=== PATIENT | male | born 1975 | race Caucasian/White ===

== ENCOUNTER 2017-12-05 21:41 | Inpatient (IN) | payer OTHER, SELFPAY ==
[2017-12-05 22:23] LABS: #Basophils 0.1 thou/uL (0.0-0.2); #Lymphocytes 2.3 thou/uL (1.20-3.40); #Monocytes 0.1 thou/uL (0.11-0.59); #Neutrophils 2.3 thou/uL (1.40-6.50); %Basophils 1.2 % (0.0-1.0); %Eosinophils 0.4 % (0.0-10.0); %Lymphocytes 48.3 % (21.0-51.0); %Monocytes 2.4 % (0.0-10.0); %Neutrophils 47.7 % (42.0-75.0); Hemoglobin 15.6 g/dL (14.0-18.0); Mean Corpuscular HGB CONC 35.5 g/dL (32.0-36.0); Mean Corpuscular Hemoglobin 36.4 pg (27.0-31.0); Mean Platelet Volume 8.6 fL (7.4-10.4); Platelet Count 56 thou/uL (130-400); RBC Distribution Width 12.4 % (11.5-14.5); Red Blood Cell (RBC) Count 4.29 mill/uL (4.70-6.10); White Blood Cell (WBC) Count 4.8 thou/uL (4.8-10.8)
[2017-12-05 22:31] LABS: ALT (SGPT) 192 U/L (8-55); AST (SGOT) 628 U/L (5-34); Albumin 3.6 g/dL (3.5-5.0); Alkaline Phosphatase 32 U/L (40-150); Anion Gap 22 mmol/L (10-20); BUN (Urea Nitrogen) 16 mg/dL (8.9-20.6); Bilirubin, Total 2.8 mg/dL (0.2-1.2); Calc. Creatinine Clearance 0 mL/min (70-130); Calcium 8.3 mg/dL (7.8-10.44); Carbon Dioxide 30 mmol/L (22-29); Chloride 88 mmol/L (98-107); Estimated GFR-MDRD Greater than 90; Glucose 151 mg/dL (70-105); Lipase 67 U/L (8-78); Potassium 3.3 mmol/L (3.5-5.1); Protein, Total 6.6 g/dL (6.0-8.3); Sodium 137 mmol/L (136-145)
[2017-12-06] MEDS ORDERED: Nicotine 14 MG PATCH TOP SCH (01:00)
[2017-12-06 01:01] LABS: INR-International Normal Ratio 1.4; PTT 33.9 SEC (22.9-36.1); Prothrombin Time 17.1 SEC (12.0-14.7)
[2017-12-06 01:20] LABS: Acetaminophen Less than 6.0 mcg/mL (10.0-30.0); Magnesium 1.5 mg/dL (1.6-2.6); Salicylate Less than 8.0 mg/dL (15.0-30.0)
[2017-12-06 01:25] LABS: Alcohol 411 mg/dL (Less than 10)
[2017-12-06 02:35] LABS: Amphetamine Not Detected (NotDetected); Barbiturates Screen Not Detected (NotDetected); Benzodiazepine Screen Not Detected (NotDetected); Cocaine Metabolite Screen Not Detected (NotDetected); Medtox Control Line Valid? VALID (VALID); Medtox Reader # READER 4; Methadone Not Detected (NotDetected); Methamphetamine Not Detected (NotDetected); Opiate Screen Not Detected (NotDetected); Oxycodone Screen Not Detected (NotDetected); Phencyclidine (PCP) Not Detected (NotDetected); THC/Cannabinoid Screen Detected (NotDetected); Tricyclic Screen Not Detected (NotDetected)
[2017-12-06 02:54] VITALS: BMI 18.9
[2017-12-06] MEDS ORDERED: Sodium Chloride 0.9% 1,000 ML IV SCH (02:59)
[2017-12-06] MEDS ORDERED: Diazepam 5 MG TAB PO PRN (03:50)
[2017-12-06] MEDS ORDERED: Diazepam 5 MG TAB PO SCH (04:00)
[2017-12-06] MEDS ORDERED: Thiamine HCl 200 MG/2 ML VIAL IM SCH (04:00)
[2017-12-06] MEDS ORDERED: Folic Acid 1 MG TAB PO SCH (09:00)
[2017-12-06] MEDS ORDERED: Multivitamin W/ Minerals 1 TAB PO SCH (09:00)
[2017-12-06] MEDS ORDERED: Mag-Al 1200 mg/1200 mg/30 ML UDCUP PO PRN (09:13)
[2017-12-06] MEDS ORDERED: Loperamide HCl 2 MG CAP PO PRN (09:13)
[2017-12-06] MEDS ORDERED: Senokot 8.6 MG TAB PO PRN (09:13)
[2017-12-06] MEDS ORDERED: Sodium Chloride 0.65% Nasal 44 ML BOT EA NARE PRN (09:13)
[2017-12-06] MEDS ORDERED: Ondansetron HCl/PF 4 MG/2 ML Vial IVP PRN (09:13)
[2017-12-06] MEDS ORDERED: hydrALAZINE 20 MG/ML VIAL SLOW IVP PRN (09:13)
[2017-12-06] MEDS ORDERED: Acetaminophen 325 MG TAB PO PRN (09:13)
[2017-12-06] MEDS ORDERED: Loratadine 10 MG TAB PO PRN (09:13)
[2017-12-06] MEDS ORDERED: traMADol HCl 50 MG TAB PO PRN (09:13)
[2017-12-06] MEDS ORDERED: Eucerin (Mineral Oil/Petrolatum,White) 30 gm Jar TOP PRN (09:13)
[2017-12-06] MEDS ORDERED: Artificial Tears 18 DROP/0.9 ML EA EYE PRN (09:13)
[2017-12-06] MEDS ORDERED: Diabetic Tussin 200 MG/10 ML UDCUP PO PRN (09:13)
[2017-12-06] MEDS ORDERED: Ondansetron ODT 4 MG TAB PO PRN (09:13)
[2017-12-06] MEDS ORDERED: Chloraseptic Spray 180 ml Bottle PO PRN (09:13)
[2017-12-06] MEDS: Lorazepam 2 MG/ML VIAL SLOW IVP PRN (11:28)
--- NOTE | 2017-12-06 12:02 | HP ---
PRIMARY CARE PHYSICIAN: [facility] call admission. REASON FOR ADMISSION: Acute alcoholic hepatitis and altered mental status. HISTORY OF PRESENT ILLNESS: A 42-year-old male who has history of seizure disorder as well as alcoholism, who was brought to emergency room for altered mental status. This patient has seizure disorder which he had first time in 2016. At that time, MRI was obtained and patient was started on seizure medication. Neurology involved at that time in his care. Patient has heavy alcoholism history, but he reports that he is trying to cut down, but still drinking every day basis little amount. His last drink was yesterday before coming to emergency room and he drank almost half pint of beer. Patient's sister noticed that he is gradually getting more confused and more unsteady. The patient's sister reports that another seizure happened in 08/2017 , at that time he fell down after seizure and he had bleeding from his head. He required admission in [facility], but family member reports that at that time, no more investigation was done. Since then, the patient is acting differently and he is having more and more confusion and more unsteadiness. Last night, he was brought to Emergency Room and he was found with abnormal LFT. He was found with acute hepatitis. His alcohol level was 411 and he had a cannabinoid positive in his drug screen. The patient was admitted to observation floor and I saw this morning, at that time he was not having any headache. He was not able to tell the date, but other question he answered correctly. He denies any focal motor weakness, but he feels incoordination. He denies any sensory symptoms. He denies any nausea, vomiting, chest pain, palpitation, UTI symptoms. He denies any melena or hematochezia. He reports that 2 weeks ago he had only one day mild blood with the stool, but subsequently he did not have any further blood in stool and currently he denies any hematochezia. He reports at that time he was constipated. REVIEW OF SYSTEMS: The following complete review of systems was negative, unless otherwise mentioned in the HPI or below: Constitutional: Weight loss or gain, ability to conduct usual activities. Skin: Rash, itching. Eyes: Double vision, pain. ENT/Mouth: Nose bleeding, neck stiffness, pain, tenderness. Cardiovascular: Palpitations, dyspnea on exertion, orthopnea. Respiratory: Shortness of breath, wheezing, cough, hemoptysis, fever or night sweats. Gastrointestinal: Poor appetite, abdominal pain, heartburn, nausea, vomiting, constipation, or diarrhea. Genitourinary: Urgency, frequency, dysuria, nocturia. Musculoskeletal: Pain, swelling. Neurologic/Psychiatric: Anxiety, depression. Allergy/Immunologic: Skin rash, bleeding tendency. Please see my HPI for pertinent positive and negative. All other review of system reviewed and negative except as mentioned in the HPI. 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 PAST SURGICAL HISTORY: Left foot surgery, right hand surgery. PAST PSYCHIATRIC HISTORY: Anxiety and depression. SOCIAL HISTORY: Patient is an alcoholic. He is trying to cut down by himself, but he drinks daily every day basis of variable amount of alcohol every day basis. Per him, patient used to drink 30 pack per day, but now he has cut down to almost half. He also smokes 1 pack per day and he also abuses marijuana. He lives with his sister. FAMILY HISTORY: No strong family history of premature coronary artery disease, stroke or cancer. ALLERGY: No known drug allergy. CURRENT HOME MEDICATIONS: The patient did not bring any medication in the emergency room, but based on our record, he was on Protonix 40 mg p.o. daily, Dilantin 100 mg 3 times daily. He is not taking any vitamins. EMERGENCY ROOM COURSE: Patient is given nicotine patch, IV fluid 1 liter. PHYSICAL EXAMINATION: VITAL SIGNS: Currently, blood pressure 112/83, pulse 96, respiratory rate 20, temperature 98.6, saturation 95% on room air, weight 58.6 kilograms. GENERAL: Patient is currently alert, awake, apprehensive, no obvious acute distress. HEENT: Normocephalic, atraumatic. Eyes: Pupils round, reactive to light. Extraocular muscle intact. No nystagmus. ENT: Oropharynx within normal limits. Moist mucous membranes. No oral lesion , no pharyngeal erythema, no exudate. NECK: Supple, no JVD, no thyromegaly, no carotid bruit, no jugular venous distention. LUNGS: Clear to auscultation without any rhonchi or rales. CARDIAC: S1, S2 appears regular. No murmur, no gallop, no rub. ABDOMEN: Patient does have right upper quadrant tenderness. Bowel sounds present. No distention, no hepatomegaly noted. No suprapubic tenderness, no peritoneal sign, no guarding, no rigidity, no rebound. BACK: Unremarkable, no CVA tenderness. EXTREMITIES: Upper extremity: Passive movements of all joints are normal. Lower extremities: No edema. Good peripheral pulsation. SKIN: No skin rash. HEMATOLOGICAL: No lymphadenopathy. PSYCHIATRIC: Normal affect. SIGNIFICANT LABS: CBC: WBC 4.8, hemoglobin 15.6, MCV 102, platelet 56. INR 1.4. BMP shows sodium 137, potassium 3.3, chloride 88, carbon dioxide 30, anion gap 22, BUN 16 , creatinine 0.83, glucose 151, calcium 8.3, magnesium 1.5, bilirubin 2.8, AST 628, ALT 192, alkaline phosphatase 32, albumin 3.6, lipase 67. Serum drug screen showed alcohol level 411. Salicylate level less than 8. Acetaminophen level less than 6. Dilantin level less than 1.8, cannabinoids positive in urine drug screen. ASSESSMENT AND PLAN/IMPRESSION: 1. Acute alcoholic hepatitis. Patient has right upper quadrant tenderness. Patient does have abnormal LFT with ongoing alcohol abuse history. The patient does have chronic alcoholism. At this point, the patient has mostly alcoholic hepatitis. We will treat him with his conservative way with banana bag and prednisolone 15 mg p.o. daily. We will repeat CMP tomorrow. 2. Progressive encephalopathy. This patient had a fall in August of this year and subsequently he is having intermittent confusion and coordination. We will do CT brain to rule out any subdural hematoma. Most likely this patient's current presentation is explained from alcoholic related brain damage. We will monitor neurologically. 3. Alcohol intoxication on admission, the patient will be observed while in hospital for alcohol withdrawal syndrome. We will start ASE protocol treatment. The patient is given counseling to avoid alcohol abuse. 4. Abnormal liver function tests, likely related with alcoholic hepatitis, but we will check hepatitis profile to rule out any associated hepatitis. 5. Abnormal electrolytes. The patient does have a low potassium, low magnesium which will be replaced. We will also check phosphorus and will repeat labs tomorrow. 6. Macrocytosis. The patient is currently banana bag. We will start folic acid, vitamin B12 and thiamine therapy upon discharge. 7. Thrombocytopenia likely related with alcoholism. We will avoid any antiplatelet or heparin product. 8. Coagulopathy due to liver disease. 9. Moderate protein calorie malnutrition. The patient will be given nutritional supplementation with Ensure. 10. Tobacco abuse disorder, nicotine patch will be given and smoking cessation counseling given. Cannabis abuse. Patient is given counseling to avoid other illicit drug abuse. 11. Deep venous thrombosis prophylaxis. No Lovenox because of low platelet count. 12. Gastrointestinal prophylaxis, Protonix 40 mg IV daily. 13. Seizure disorder: continue dilantin, dilantin level checked and low CODE STATUS: Patient is full code. Patient's sister is surrogate decision maker. Disposition plan based on clinical course. We are expecting patient's stay in hospital more than 2 midnights. Plan of care discussed with the patient and patient's sister. YUVAL
[2017-12-06] MEDS: Nicotine 14 MG PATCH TD SCH (12:24)
[2017-12-06] MEDS: Multivitamins, Adult 10 ML, Folic Acid 1 MG, Thiamine HCl 100 MG in Dextrose 5 %-0.45 %... IV SCH (12:25)
--- NOTE | 2017-12-06 13:36 | CT ---
CT HEAD NONCONTRAST: HISTORY: Falls. Altered mental status. COMPARISON: 09/05/16. FINDINGS: There is no evidence of acute intracranial hemorrhage or infarct. The ventricles appear normal in si ze, shape, and position. There is no mass effect or shift of midline structures. Visualized paranas al sinuses remain well aerated. IMPRESSION: No acute intracranial abnormalities are demonstrated on noncontrast CT head. POS: JOSE
[2017-12-06] MEDS: Potassium Chloride 20 MEQ TAB PO SCH (16:25)
[2017-12-06] MEDS: Diazepam 5 MG TAB PO SCH (20:37)
[2017-12-06] MEDS ORDERED: Famotidine 20 MG TAB PO SCH (21:00)
[2017-12-07] MEDS ORDERED: Diazepam 5 MG TAB PO PRN (04:00)
[2017-12-07 04:53] LABS: Phosphorus 2.3 mg/dL (2.3-4.7)
[2017-12-07 04:56] LABS: Magnesium 0.9 mg/dL (1.6-2.6)
[2017-12-07 05:14] LABS: HBCM Index 0.26 S/CO (0-0.79); HBSAg Index 0.22 S/CO (0-0.99); Hep A IgM AB Non-Reactive (NonReactive); Hep A IgM S/CO 0.44 S/CO (0-0.79); Hep B Surf Ag Non-Reactive S/CO (NonReactive); Hep C IgG Ab Non-Reactive (NonReactive); Hep C Index 0.15 S/CO (0-0.79); Hepatitis B Core IGM Abs Non-Reactive (NonReactive)
[2017-12-07] MEDS ORDERED: Magnesium 2 GM/NS 0.9% 100 ML 2 GM in Premix Bag 1 BAG IVPB SCH (05:15)
[2017-12-07] MEDS ORDERED: Magnesium Sulfate 4 GM in Sodium Chloride 0.9% 250 ML 250 ML IVPB SCH (07:00)
[2017-12-07] MEDS: prednisoLONE 15 MG/5 ML UDCUP PO SCH (08:08)
[2017-12-07] MEDS: Potassium Chloride 20 MEQ TAB PO SCH ×2 (08:08→16:46)
[2017-12-07] MEDS: Diazepam 5 MG TAB PO SCH ×2 (08:09→20:15)
[2017-12-07] MEDS: Amlodipine 5 MG TAB PO SCH (08:09)
[2017-12-07] MEDS ORDERED: Magnesium Oxide 400 MG TAB PO SCH ×2 (09:00)
[2017-12-07] MEDS: Nicotine 14 MG PATCH TD SCH (11:50)
[2017-12-07] MEDS: Multivitamins, Adult 10 ML, Folic Acid 1 MG, Thiamine HCl 100 MG in Dextrose 5 %-0.45 %... IV SCH (12:04)
--- NOTE | 2017-12-07 12:08 | PDOC.PN ---
- Subjective Encounter Start Date: 12/07/17 Encounter Start Time: 07:50 -: old records requested/rev Patient seen and examined for abnormal LFT. No new complaints. Noted overnight events - Objective Resuscitation Status: Resuscitation Status FULL:Full Resuscitation MAR Reviewed: Yes Vital Signs & Weight: Vital Signs (12 hours) Temp Pulse Resp BP Pulse Ox 12/07/17 11:30 98.4 F 59 L 16 136/86 99 12/07/17 08:09 59 L 12/07/17 08:00 97.8 F 59 L 18 95 12/07/17 07:11 98.1 F 59 L 16 141/87 H 99 12/07/17 04:58 94 L Weight Admit Weight 120 lb 12.8 oz Weight 120 lb 12.8 oz I&O: 12/06/17 12/07/17 12/08/17 06:59 06:59 06:59 Intake Total 100 1490 420 Output Total 402 Balance 100 1088 420 Result Diagrams: 12/05/17 21:54 12/05/17 21:54 Radiology Reviewed by me: Yes Phys Exam - Physical Examination Constitutional: NAD HEENT: PERRLA, moist MMs Neck: no JVD, supple Respiratory: no wheezing, no rales, no rhonchi Cardiovascular: RRR, no significant murmur, no rub Gastrointestinal: soft, non-tender, no distention, positive bowel sounds Musculoskeletal: no edema, pulses present Neurological: non-focal, normal sensation Lymphatic: no nodes Psychiatric: normal affect Skin: no rash, normal turgor Dx/Plan (1) Abnormal LFTs Code(s): R94.5 - ABNORMAL RESULTS OF LIVER FUNCTION STUDIES Status: Acute (2) Alcohol intoxication Status: Acute (3) Alcoholic hepatitis without ascites Code(s): K70.10 - ALCOHOLIC HEPATITIS WITHOUT ASCITES Status: Acute (4) Coagulopathy Status: Acute (5) Hypokalemia Code(s): E87.6 - HYPOKALEMIA Status: Acute (6) Hypomagnesemia Code(s): E83.42 - HYPOMAGNESEMIA Status: Acute (7) Alcohol use Code(s): Z78.9 - OTHER SPECIFIED HEALTH STATUS Status: Chronic (8) Macrocytic anemia Code(s): D53.9 - NUTRITIONAL ANEMIA, UNSPECIFIED Status: Chronic (9) Protein-calorie malnutrition, moderate Code(s): E44.0 - MODERATE PROTEIN-CALORIE MALNUTRITION Status: Chronic (10) Thrombocytopenia Code(s): D69.6 - THROMBOCYTOPENIA, UNSPECIFIED Status: Chronic (11) Tobacco abuse Code(s): Z72.0 - TOBACCO USE Status: Chronic - Plan cont current plan of care * replace magnesium * repeat labs tomorrow * medication reviewed as below * symptomatic treatment. * continue prednisolone Review of Systems - Review of Systems Eyes: negative: Pain, Vision Change, Conjunctivae Inflammation, Eyelid Inflammation, Redness, Other ENT: negative: Ear Pain, Ear Discharge, Nose Pain, Nose Discharge, Nose Congestion, Mouth Pain, Mouth Swelling, Throat Pain, Throat Swelling, Other Respiratory: negative: Cough, Dry, Shortness of Breath, Hemoptysis, SOB with Excertion, Pleuritic Pain, Sputum, Wheezing Cardiovascular: negative: chest pain, palpitations, orthopnea, paroxysmal nocturnal dyspnea, edema, light headedness, other Gastrointestinal: negative: Nausea, Vomiting, Abdominal Pain, Diarrhea, Constipation, Melena, Hematochezia, Other Genitourinary: negative: Dysuria, Frequency, Incontinence, Hematuria, Retention , Other Musculoskeletal: negative: Neck Pain, Shoulder Pain, Arm Pain, Back Pain, Hand Pain, Leg Pain, Foot Pain, Other Skin: negative: Rash, Lesions, Jose, Bruising, Other - Medications/Allergies Allergies/Adverse Reactions: Allergies Allergy/AdvReac Type Severity Reaction Status Date / Time No Known Allergies Allergy Verified 12/06/17 03:00 Medications: Current Medications Acetaminophen (Tylenol) 325 mg PO Q4H PRN PRN Reason: Headache/Fever or Pain Al Hydroxide/Mg Hydroxide (Maalox) 30 ml PO Q6H PRN PRN Reason: Heartburn or Indigestion Amlodipine Besylate (Norvasc) 5 mg PO DAILY [facility] Last Admin: 12/07/17 08:09 Dose: 5 mg Artificial Tears (Tears Naturale) 0 drop EA EYE PRN PRN PRN Reason: Dry Eyes Diazepam (Valium) 5 mg PO BID [facility] Last Admin: 12/07/17 08:09 Dose: 5 mg Guaifenesin (Robitussin Sf) 200 mg PO Q4H PRN PRN Reason: Cough Hydralazine HCl (Apresoline) 10 mg SLOW IVP Q4H PRN PRN Reason: Systolic BP > 180 Multivitamins 10 ml/ Folic Acid 1 mg/ Thiamine HCl 100 mg / Dextrose/Sodium Chloride 1,011.2 mls @ 125 mls/hr IV 1100 [facility] Last Admin: 12/07/17 12:04 Dose: 1,011.2 mls Lactulose (Lactulose) 20 gm PO DAILY [facility] Last Admin: 12/07/17 08:09 Dose: 20 gm Loperamide HCl (Imodium) 2 mg PO PRN PRN PRN Reason: Diarrhea/Loose Stools Loratadine (Claritin) 10 mg PO DAILYPRN PRN PRN Reason: Sinus Symptoms Lorazepam (Ativan) 1 mg SLOW IVP Q4H PRN PRN Reason: Anxiety/Agitation Last Admin: 12/06/17 11:28 Dose: 1 mg Magnesium Oxide (Magnesium Oxide) 400 mg PO DAILY [facility] Last Admin: 12/07/17 08:09 Dose: 400 mg Mineral Oil/White Petrolatum (Eucerin Cream) 0 gm TOP BIDPRN PRN PRN Reason: Dry Skin Nicotine (Nicoderm Patch) 14 mg TD 1200 [facility] Last Admin: 12/07/17 11:50 Dose: 14 mg Ondansetron HCl (Zofran Odt) 4 mg PO Q6H PRN PRN Reason: Nausea/Vomiting Ondansetron HCl (Zofran) 4 mg IVP Q6H PRN PRN Reason: Nausea/Vomiting Pantoprazole Sodium (Protonix) 40 mg PO DAILY [facility] Last Admin: 12/07/17 08:09 Dose: 40 mg Phenol (Chloraseptic [place] 180 Ml Bot) 0 ml PO PRN PRN PRN Reason: Sore Throat Potassium Chloride (K-Dur) 20 meq PO BID[facility] Last Admin: 12/07/17 08:08 Dose: 20 meq Prednisolone (Orapred) 15 mg PO DAILY [facility] Last Admin: 12/07/17 08:08 Dose: 15 mg Senna (Senokot) 2 tab PO HSPRN PRN PRN Reason: Constipation Sodium Chloride ([place] Nasal [place] 0.65%) 0 ml EA NARE QIDPRN PRN PRN Reason: Nasal Congestion Tramadol HCl (Ultram) 50 mg PO Q4H PRN PRN Reason: Moderate Pain (4-6)
[2017-12-08 05:28] LABS: #Eosinphils 0.1 thou/uL (0.0-0.7); #Lymphocytes 1.3 thou/uL (1.20-3.40); #Monocytes 0.1 thou/uL (0.11-0.59); #Neutrophils 2.5 thou/uL (1.40-6.50); %Basophils 0.5 % (0.0-1.0); %Eosinophils 1.9 % (0.0-10.0); %Lymphocytes 32.1 % (21.0-51.0); %Monocytes 3.1 % (0.0-10.0); %Neutrophils 62.5 % (42.0-75.0); Hemoglobin 11.1 g/dL (14.0-18.0); Mean Corpuscular HGB CONC 36.1 g/dL (32.0-36.0); Mean Platelet Volume 9.9 fL (7.4-10.4); Platelet Count 23 thou/uL (130-400); RBC Distribution Width 12.4 % (11.5-14.5); Red Blood Cell (RBC) Count 3.01 mill/uL (4.70-6.10); White Blood Cell (WBC) Count 4.1 thou/uL (4.8-10.8)
[2017-12-08 05:32] LABS: ALT (SGPT) 179 U/L (8-55); AST (SGOT) 241 U/L (5-34); Albumin 3.3 g/dL (3.5-5.0); Alkaline Phosphatase 28 U/L (40-150); Anion Gap 13 mmol/L (10-20); BUN (Urea Nitrogen) 4 mg/dL (8.9-20.6); Bilirubin, Total 2.7 mg/dL (0.2-1.2); Calc. Creatinine Clearance 114 mL/min (70-130); Calcium 7.8 mg/dL (7.8-10.44); Carbon Dioxide 31 mmol/L (22-29); Chloride 88 mmol/L (98-107); Estimated GFR-MDRD Greater than 90; Globulin 2.8 g/dL (2.4-3.5); Glucose 141 mg/dL (70-105); Magnesium 1.3 mg/dL (1.6-2.6); Protein, Total 6.1 g/dL (6.0-8.3); Sodium 130 mmol/L (136-145)
[2017-12-08] MEDS ORDERED: Potassium Chloride 20 MEQ TAB PO SCH (06:15)
[2017-12-08] MEDS: Potassium Chloride 20 MEQ in Premix Bag 1 BAG IVPB SCH ×2 (06:20→07:50)
[2017-12-08] MEDS ORDERED: Magnesium Sulfate 4 GM in Sodium Chloride 0.9% 250 ML 250 ML IVPB SCH (06:30)
[2017-12-08] MEDS: prednisoLONE 15 MG/5 ML UDCUP PO SCH (07:45)
[2017-12-08] MEDS: Potassium Chloride 20 MEQ TAB PO SCH ×3 (07:46→20:31)
[2017-12-08] MEDS: Multivitamin W/ Minerals 1 TAB PO SCH (07:46)
[2017-12-08] MEDS: Folic Acid 1 MG TAB PO SCH (07:46)
[2017-12-08] MEDS: Diazepam 5 MG TAB PO SCH ×2 (07:46→20:31)
[2017-12-08] MEDS: Amlodipine 5 MG TAB PO SCH (07:46)
[2017-12-08] MEDS: Cyanocobalamin (Vitamin B-12) 1,000 MCG TAB PO SCH (07:46)
[2017-12-08] MEDS: Magnesium Oxide 400 MG TAB PO SCH ×2 (07:47→20:30)
--- NOTE | 2017-12-08 10:08 | PDOC.PN ---
- Subjective Encounter Start Date: 12/08/17 Encounter Start Time: 09:10 Patient seen and examined for abnormal LFT. No new complaints. No overnight events - Objective Resuscitation Status: Resuscitation Status FULL:Full Resuscitation MAR Reviewed: Yes Vital Signs & Weight: Vital Signs (12 hours) Temp Pulse Resp BP Pulse Ox 12/08/17 08:00 97.4 F L 66 18 98 12/08/17 07:46 66 12/08/17 07:16 98 F 66 16 115/82 98 12/08/17 05:28 98 12/08/17 04:00 98.2 F 53 L 18 142/92 H 98 12/08/17 00:00 98.3 F 67 18 126/89 99 Weight Admit Weight 120 lb 12.8 oz Weight 120 lb 12.8 oz I&O: 12/07/17 12/08/17 12/09/17 06:59 06:59 06:59 Intake Total 1490 1020 360 Output Total 402 600 Balance 1088 420 360 Result Diagrams: 12/08/17 04:36 12/08/17 04:36 Phys Exam - Physical Examination Constitutional: NAD HEENT: PERRLA, moist MMs, sclera anicteric Neck: no JVD, supple Respiratory: no wheezing, no rales, no rhonchi Cardiovascular: RRR, no significant murmur, no rub Gastrointestinal: soft, non-tender, no distention, positive bowel sounds Musculoskeletal: no edema, pulses present Neurological: non-focal, normal sensation, moves all 4 limbs Lymphatic: no nodes Psychiatric: normal affect Skin: no rash, normal turgor Dx/Plan (1) Abnormal LFTs Code(s): R94.5 - ABNORMAL RESULTS OF LIVER FUNCTION STUDIES Status: Acute (2) Alcohol intoxication Status: Acute (3) Alcoholic hepatitis without ascites Code(s): K70.10 - ALCOHOLIC HEPATITIS WITHOUT ASCITES Status: Acute (4) Coagulopathy Status: Acute (5) Hypokalemia Code(s): E87.6 - HYPOKALEMIA Status: Acute (6) Hypomagnesemia Code(s): E83.42 - HYPOMAGNESEMIA Status: Acute (7) Alcohol use Code(s): Z78.9 - OTHER SPECIFIED HEALTH STATUS Status: Chronic (8) Macrocytic anemia Code(s): D53.9 - NUTRITIONAL ANEMIA, UNSPECIFIED Status: Chronic (9) Protein-calorie malnutrition, moderate Code(s): E44.0 - MODERATE PROTEIN-CALORIE MALNUTRITION Status: Chronic (10) Thrombocytopenia Code(s): D69.6 - THROMBOCYTOPENIA, UNSPECIFIED Status: Chronic (11) Tobacco abuse Code(s): Z72.0 - TOBACCO USE Status: Chronic - Plan cont current plan of care * DC banana bag * start oral folic acid, thiamin, vitamin b12 and theragram M * replace potassium and magnesium today * will recheck bmp, mg later today and replace more if needed * expecting discharge tomorrow * medication reviewed as below * symptomatic treatment. Review of Systems - Review of Systems Eyes: negative: Pain, Vision Change, Conjunctivae Inflammation, Eyelid Inflammation, Redness, Other ENT: negative: Ear Pain, Ear Discharge, Nose Pain, Nose Discharge, Nose Congestion, Mouth Pain, Mouth Swelling, Throat Pain, Throat Swelling, Other Respiratory: negative: Cough, Dry, Shortness of Breath, Hemoptysis, SOB with Excertion, Pleuritic Pain, Sputum, Wheezing Cardiovascular: negative: chest pain, palpitations, orthopnea, paroxysmal nocturnal dyspnea, edema, light headedness, other Gastrointestinal: negative: Nausea, Vomiting, Abdominal Pain, Diarrhea, Constipation, Melena, Hematochezia, Other Genitourinary: negative: Dysuria, Frequency, Incontinence, Hematuria, Retention , Other Musculoskeletal: negative: Neck Pain, Shoulder Pain, Arm Pain, Back Pain, Hand Pain, Leg Pain, Foot Pain, Other Skin: negative: Rash, Lesions, Jose, Bruising, Other - Medications/Allergies Allergies/Adverse Reactions: Allergies Allergy/AdvReac Type Severity Reaction Status Date / Time No Known Allergies Allergy Verified 12/06/17 03:00 Medications: Current Medications Acetaminophen (Tylenol) 325 mg PO Q4H PRN PRN Reason: Headache/Fever or Pain Al Hydroxide/Mg Hydroxide (Maalox) 30 ml PO Q6H PRN PRN Reason: Heartburn or Indigestion Amlodipine Besylate (Norvasc) 5 mg PO DAILY [facility] Last Admin: 12/08/17 07:46 Dose: 5 mg Artificial Tears (Tears Naturale) 0 drop EA EYE PRN PRN PRN Reason: Dry Eyes Cyanocobalamin (Vitamin B-12) 1,000 mcg PO DAILY [facility] Last Admin: 05/05/18 07:46 Dose: 1,000 mcg Diazepam (Valium) 5 mg PO BID [facility] Last Admin: 12/08/17 07:46 Dose: 5 mg Folic Acid (Folvite) 1 mg PO DAILY [facility] Last Admin: 12/08/17 07:46 Dose: 1 mg Guaifenesin (Robitussin Sf) 200 mg PO Q4H PRN PRN Reason: Cough Hydralazine HCl (Apresoline) 10 mg SLOW IVP Q4H PRN PRN Reason: Systolic BP > 180 Potassium Chloride 20 meq/ (Device) 100 mls @ 50 mls/hr IVPB 0630,0830 [facility] Stop: 12/08/17 10:29 Last Admin: 12/08/17 07:50 Dose: 100 mls Iron/Minerals/Multivitamins (Theragran M) 1 tab PO DAILY [facility] Last Admin: 12/08/17 07:46 Dose: 1 tab Lactulose (Lactulose) 20 gm PO DAILY [facility] Last Admin: 12/08/17 07:45 Dose: 20 gm Loperamide HCl (Imodium) 2 mg PO PRN PRN PRN Reason: Diarrhea/Loose Stools Loratadine (Claritin) 10 mg PO DAILYPRN PRN PRN Reason: Sinus Symptoms Lorazepam (Ativan) 1 mg SLOW IVP Q4H PRN PRN Reason: Anxiety/Agitation Last Admin: 12/06/17 11:28 Dose: 1 mg Magnesium Oxide (Magnesium Oxide) 400 mg PO BID [facility] Last Admin: 12/08/17 07:47 Dose: 400 mg Mineral Oil/White Petrolatum (Eucerin Cream) 0 gm TOP BIDPRN PRN PRN Reason: Dry Skin Nicotine (Nicoderm Patch) 14 mg TD 1200 [facility] Last Admin: 12/07/17 11:50 Dose: 14 mg Ondansetron HCl (Zofran Odt) 4 mg PO Q6H PRN PRN Reason: Nausea/Vomiting Ondansetron HCl (Zofran) 4 mg IVP Q6H PRN PRN Reason: Nausea/Vomiting Pantoprazole Sodium (Protonix) 40 mg PO DAILY [facility] Last Admin: 12/08/17 07:46 Dose: 40 mg Phenol (Chloraseptic [place] 180 Ml Bot) 0 ml PO PRN PRN PRN Reason: Sore Throat Potassium Chloride (K-Dur) 20 meq PO TID [facility] Last Admin: 12/08/17 07:46 Dose: 20 meq Prednisolone (Orapred) 15 mg PO DAILY [facility] Last Admin: 12/08/17 07:45 Dose: 15 mg Senna (Senokot) 2 tab PO HSPRN PRN PRN Reason: Constipation Sodium Chloride ([place] Nasal [place] 0.65%) 0 ml EA NARE QIDPRN PRN PRN Reason: Nasal Congestion Sodium Chloride (Flush - Normal Saline) 10 ml IVF PRN PRN PRN Reason: Saline Flush Thiamine HCl (Thiamine) 100 mg PO DAILY [facility] Last Admin: 12/08/17 07:47 Dose: 100 mg Tramadol HCl (Ultram) 50 mg PO Q4H PRN PRN Reason: Moderate Pain (4-6)
[2017-12-08] MEDS: Nicotine 14 MG PATCH TD SCH (12:30)
[2017-12-09] MEDS: Lorazepam 2 MG/ML VIAL SLOW IVP PRN ×4 (00:13→22:27)
[2017-12-09 05:43] LABS: #Eosinphils 0.1 thou/uL (0.0-0.7); #Lymphocytes 1.8 thou/uL (1.20-3.40); #Monocytes 0.4 thou/uL (0.11-0.59); #Neutrophils 2.8 thou/uL (1.40-6.50); %Basophils 0.9 % (0.0-1.0); %Eosinophils 1.5 % (0.0-10.0); %Lymphocytes 35.5 % (21.0-51.0); %Monocytes 6.9 % (0.0-10.0); %Neutrophils 55.2 % (42.0-75.0); Hemoglobin 10.8 g/dL (14.0-18.0); Mean Corpuscular HGB CONC 35.7 g/dL (32.0-36.0); Mean Corpuscular Hemoglobin 37.2 pg (27.0-31.0); Mean Platelet Volume 9.6 fL (7.4-10.4); Platelet Count 36 thou/uL (130-400); RBC Distribution Width 12.3 % (11.5-14.5); Red Blood Cell (RBC) Count 2.92 mill/uL (4.70-6.10); White Blood Cell (WBC) Count 5.1 thou/uL (4.8-10.8)
[2017-12-09 05:56] LABS: ALT (SGPT) 165 U/L (8-55); AST (SGOT) 141 U/L (5-34); Albumin 3.7 g/dL (3.5-5.0); Alkaline Phosphatase 25 U/L (40-150); Anion Gap 11 mmol/L (10-20); BUN (Urea Nitrogen) 9 mg/dL (8.9-20.6); Bilirubin, Total 3.1 mg/dL (0.2-1.2); Calc. Creatinine Clearance 116 mL/min (70-130); Calcium 8.6 mg/dL (7.8-10.44); Carbon Dioxide 29 mmol/L (22-29); Chloride 95 mmol/L (98-107); Estimated GFR-MDRD Greater than 90; Globulin 3.1 g/dL (2.4-3.5); Glucose 110 mg/dL (70-105); Magnesium 1.6 mg/dL (1.6-2.6); Potassium 3.2 mmol/L (3.5-5.1); Protein, Total 6.8 g/dL (6.0-8.3); Sodium 132 mmol/L (136-145)
[2017-12-09] MEDS ORDERED: Potassium Chloride 20 MEQ TAB PO SCH (07:40)
[2017-12-09] MEDS: Cyanocobalamin (Vitamin B-12) 1,000 MCG TAB PO SCH (07:57)
[2017-12-09] MEDS: Folic Acid 1 MG TAB PO SCH (07:58)
[2017-12-09] MEDS: Magnesium Oxide 400 MG TAB PO SCH ×2 (07:58→20:40)
[2017-12-09] MEDS: Diazepam 5 MG TAB PO SCH ×2 (07:58→20:40)
[2017-12-09] MEDS: Amlodipine 5 MG TAB PO SCH (07:58)
[2017-12-09] MEDS: Potassium Chloride 20 MEQ TAB PO SCH ×3 (07:59→20:40)
[2017-12-09] MEDS: Multivitamin W/ Minerals 1 TAB PO SCH (07:59)
[2017-12-09] MEDS: prednisoLONE 15 MG/5 ML UDCUP PO SCH (07:59)
[2017-12-09 09:58] LABS: Lactic Acid 1.1 mmol/L (0.5-2.2)
[2017-12-09 10:02] LABS: CK (CPK) 253 U/L (30-200); Dilantin Less than 1.8 ug/mL (10.0-20.0)
[2017-12-09] MEDS ORDERED: Haloperidol 1 MG TAB PO PRN (10:52)
--- NOTE | 2017-12-09 10:55 | PDOC.PN ---
- Subjective Encounter Start Date: 12/09/17 Encounter Start Time: 09:30 Patient seen and examined for alcohol withdrawl. today pt is confused, he is hallucinating, No overnight events - Objective Resuscitation Status: Resuscitation Status FULL:Full Resuscitation MAR Reviewed: Yes Vital Signs & Weight: Vital Signs (12 hours) Temp Pulse Resp BP BP Pulse Ox 12/09/17 08:00 97.5 F L 96 18 98 12/09/17 07:58 96 12/09/17 07:09 97.7 F 96 16 118/78 97 12/09/17 04:26 98.0 F 64 20 139/87 100 12/09/17 00:00 98.1 F 68 20 136/87 100 Weight Admit Weight 120 lb 12.8 oz Weight 120 lb 12.8 oz I&O: 12/08/17 12/09/17 12/10/17 06:59 06:59 06:59 Intake Total 1020 2080 360 Output Total 600 Balance 420 2080 360 Result Diagrams: 12/09/17 05:05 12/09/17 05:05 Phys Exam - Physical Examination Constitutional: NAD HEENT: PERRLA, moist MMs, sclera anicteric Neck: no JVD, supple Respiratory: no wheezing, no rales, no rhonchi Cardiovascular: RRR, no significant murmur, no rub Gastrointestinal: soft, non-tender, no distention, positive bowel sounds Musculoskeletal: no edema, pulses present Neurological: moves all 4 limbs Lymphatic: no nodes Psychiatric: normal affect Skin: no rash, normal turgor Dx/Plan (1) Abnormal LFTs Code(s): R94.5 - ABNORMAL RESULTS OF LIVER FUNCTION STUDIES Status: Acute (2) Alcohol intoxication Status: Acute (3) Alcoholic hepatitis without ascites Code(s): K70.10 - ALCOHOLIC HEPATITIS WITHOUT ASCITES Status: Acute (4) Coagulopathy Status: Acute (5) Hypokalemia Code(s): E87.6 - HYPOKALEMIA Status: Acute (6) Hypomagnesemia Code(s): E83.42 - HYPOMAGNESEMIA Status: Acute (7) Alcohol use Code(s): Z78.9 - OTHER SPECIFIED HEALTH STATUS Status: Chronic (8) Macrocytic anemia Code(s): D53.9 - NUTRITIONAL ANEMIA, UNSPECIFIED Status: Chronic (9) Protein-calorie malnutrition, moderate Code(s): E44.0 - MODERATE PROTEIN-CALORIE MALNUTRITION Status: Chronic (10) Thrombocytopenia Code(s): D69.6 - THROMBOCYTOPENIA, UNSPECIFIED Status: Chronic (11) Tobacco abuse Code(s): Z72.0 - TOBACCO USE Status: Chronic (12) Alcohol withdrawal syndrome Code(s): F10.239 - ALCOHOL DEPENDENCE WITH WITHDRAWAL, UNSPECIFIED Status: Acute - Plan cont current plan of care * continue ativan IV as needed, will add haldol PO as needed * replace potassium * will add keppra for suspected seizure, he is at risk for alcohol withdrawl seizure * restraint for his safety * medication reviewed as below * symptomatic treatment * he is not ready for discharge today * will monitor closely. Review of Systems - Review of Systems Other: not reliable as pt is confused and hallucinating - Medications/Allergies Allergies/Adverse Reactions: Allergies Allergy/AdvReac Type Severity Reaction Status Date / Time No Known Allergies Allergy Verified 12/06/17 03:00 Medications: Current Medications Acetaminophen (Tylenol) 325 mg PO Q4H PRN PRN Reason: Headache/Fever or Pain Last Admin: 12/09/17 05:15 Dose: 325 mg Al Hydroxide/Mg Hydroxide (Maalox) 30 ml PO Q6H PRN PRN Reason: Heartburn or Indigestion Amlodipine Besylate (Norvasc) 5 mg PO DAILY [facility] Last Admin: 12/09/17 07:58 Dose: 5 mg Artificial Tears (Tears Naturale) 0 drop EA EYE PRN PRN PRN Reason: Dry Eyes Cyanocobalamin (Vitamin B-12) 1,000 mcg PO DAILY [facility] Last Admin: 12/09/17 07:57 Dose: 1,000 mcg Diazepam (Valium) 5 mg PO BID [facility] Last Admin: 12/09/17 07:58 Dose: 5 mg Folic Acid (Folvite) 1 mg PO DAILY [facility] Last Admin: 12/09/17 07:58 Dose: 1 mg Guaifenesin (Robitussin Sf) 200 mg PO Q4H PRN PRN Reason: Cough Haloperidol (Haldol) 1 mg PO Q4HR PRN PRN Reason: Alcohol Withdrawal Hydralazine HCl (Apresoline) 10 mg SLOW IVP Q4H PRN PRN Reason: Systolic BP > 180 Levetiracetam 500 mg/ Device 100 mls @ 200 mls/hr IVPB BID [facility] Levetiracetam 500 mg/ Device 50 mls @ 200 mls/hr IVPB NOW [facility] Iron/Minerals/Multivitamins (Theragran M) 1 tab PO DAILY [facility] Last Admin: 12/09/17 07:59 Dose: 1 tab Lactulose (Lactulose) 20 gm PO DAILY [facility] Last Admin: 12/09/17 07:57 Dose: 20 gm Loperamide HCl (Imodium) 2 mg PO PRN PRN PRN Reason: Diarrhea/Loose Stools Loratadine (Claritin) 10 mg PO DAILYPRN PRN PRN Reason: Sinus Symptoms Last Admin: 12/09/17 05:16 Dose: 10 mg Lorazepam (Ativan) 1 mg SLOW IVP Q4H PRN PRN Reason: Anxiety/Agitation Last Admin: 12/09/17 09:41 Dose: 1 mg Magnesium Oxide (Magnesium Oxide) 400 mg PO BID [facility] Last Admin: 12/09/17 07:58 Dose: 400 mg Mineral Oil/White Petrolatum (Eucerin Cream) 0 gm TOP BIDPRN PRN PRN Reason: Dry Skin Nicotine (Nicoderm Patch) 14 mg TD 1200 [facility] Last Admin: 12/08/17 12:30 Dose: 14 mg Ondansetron HCl (Zofran Odt) 4 mg PO Q6H PRN PRN Reason: Nausea/Vomiting Ondansetron HCl (Zofran) 4 mg IVP Q6H PRN PRN Reason: Nausea/Vomiting Pantoprazole Sodium (Protonix) 40 mg PO DAILY [facility] Last Admin: 12/09/17 07:58 Dose: 40 mg Phenol (Chloraseptic Mchenry 180 Ml Bot) 0 ml PO PRN PRN PRN Reason: Sore Throat Potassium Chloride (K-Dur) 40 meq PO TID [facility] Last Admin: 12/09/17 07:59 Dose: 40 meq Prednisolone (Orapred) 15 mg PO DAILY [facility] Last Admin: 12/09/17 07:59 Dose: 15 mg Senna (Senokot) 2 tab PO HSPRN PRN PRN Reason: Constipation Sodium Chloride ([place] Nasal Mchenry 0.65%) 0 ml EA NARE QIDPRN PRN PRN Reason: Nasal Congestion Sodium Chloride (Flush - Normal Saline) 10 ml IVF PRN PRN PRN Reason: Saline Flush Thiamine HCl (Thiamine) 100 mg PO DAILY [facility] Last Admin: 12/09/17 07:58 Dose: 100 mg Tramadol HCl (Ultram) 50 mg PO Q4H PRN PRN Reason: Moderate Pain (4-6)
[2017-12-09] MEDS: Nicotine 14 MG PATCH TD SCH (11:27)
[2017-12-10] MEDS: Diazepam 5 MG TAB PO SCH ×2 (08:18→20:21)
[2017-12-10] MEDS: Magnesium Oxide 400 MG TAB PO SCH ×2 (08:19→20:21)
[2017-12-10] MEDS: Potassium Chloride 20 MEQ TAB PO SCH ×3 (08:19→20:21)
[2017-12-10] MEDS: Folic Acid 1 MG TAB PO SCH (08:19)
[2017-12-10] MEDS: Amlodipine 5 MG TAB PO SCH (08:20)
[2017-12-10] MEDS: Multivitamin W/ Minerals 1 TAB PO SCH (08:20)
[2017-12-10] MEDS: Cyanocobalamin (Vitamin B-12) 1,000 MCG TAB PO SCH (08:20)
[2017-12-10] MEDS: Nicotine 14 MG PATCH TD SCH (12:34)
--- NOTE | 2017-12-10 12:48 | PDOC.PN ---
- Subjective Encounter Start Date: 12/10/17 Encounter Start Time: 12:46 Mr. Silva was seen in follow-up of alcohol withdraw, and alcoholic hepatitis. He is less agitated, but says he is still having visual hallucinations. He admits the abdominal pain has improved. - Objective Resuscitation Status: Resuscitation Status FULL:Full Resuscitation MAR Reviewed: Yes Vital Signs & Weight: Vital Signs (12 hours) Temp Pulse Resp BP BP Pulse Ox 12/10/17 12:00 98.7 F 88 16 133/93 H 133/93 H 97 12/10/17 08:20 77 131/87 12/10/17 08:00 98.2 F 77 16 131/87 98 12/10/17 07:14 98.2 F 77 16 131/87 98 12/10/17 04:06 96 12/10/17 04:00 97.8 F 67 20 115/81 115/81 97 Weight Admit Weight 120 lb 12.8 oz Weight 120 lb 12.8 oz I&O: 12/09/17 12/10/17 12/11/17 06:59 06:59 06:59 Intake Total 2079 1779 Balance 2079 1779 Result Diagrams: 12/09/17 05:05 12/09/17 05:05 Phys Exam - Physical Examination HEENT: PERRLA Respiratory: no wheezing, no rales, no rhonchi, clear to auscultation bilateral Cardiovascular: RRR, no significant murmur, no rub Gastrointestinal: soft, non-tender, no distention, positive bowel sounds Musculoskeletal: no edema Dx/Plan (1) Alcohol withdrawal syndrome Code(s): F10.239 - ALCOHOL DEPENDENCE WITH WITHDRAWAL, UNSPECIFIED Status: Acute (2) Alcoholic hepatitis without ascites Code(s): K70.10 - ALCOHOLIC HEPATITIS WITHOUT ASCITES Status: Acute (3) Coagulopathy Status: Acute (4) Hypokalemia Code(s): E87.6 - HYPOKALEMIA Status: Acute (5) Alcoholism /alcohol abuse Code(s): F10.20 - ALCOHOL DEPENDENCE, UNCOMPLICATED Status: Chronic - Plan * Alcohol withdrawal- improving- will continue Valium, and prn ativan * Alcoholic hepatitis- will continue to monitor LFT's his bilirubin increased a bit. His Discriminanat function was calculated a 4.9 based on his recent lab work. * Continue Thiamine and Folate, and MVI's * Seizure prophylaxis with Keppra * replace potassium .
[2017-12-10] MEDS: prednisoLONE 15 MG/5 ML UDCUP PO SCH (13:12)
[2017-12-10] MEDS: Lorazepam 2 MG/ML VIAL SLOW IVP PRN (13:13)
[2017-12-11 05:32] LABS: ALT (SGPT) 110 U/L (8-55); AST (SGOT) 62 U/L (5-34); Albumin 3.3 g/dL (3.5-5.0); Alkaline Phosphatase 21 U/L (40-150); Bilirubin, Direct 0.7 mg/dL (0.1-0.3); Protein, Total 6.1 g/dL (6.0-8.3)
[2017-12-11 06:03] LABS: #Eosinphils 0.1 thou/uL (0.0-0.7); #Lymphocytes 2.6 thou/uL (1.20-3.40); #Monocytes 0.7 thou/uL (0.11-0.59); #Neutrophils 2.4 thou/uL (1.40-6.50); %Basophils 0.7 % (0.0-1.0); %Eosinophils 2.1 % (0.0-10.0); %Lymphocytes 44.7 % (21.0-51.0); %Monocytes 11.6 % (0.0-10.0); %Neutrophils 40.9 % (42.0-75.0); Hemoglobin 9.4 g/dL (14.0-18.0); MDiff Complete? YES; Macrocytosis MODERATE=16-30 cells (100X) (0-5/hpf); Mean Corpuscular HGB CONC 34.7 g/dL (32.0-36.0); Mean Corpuscular Hemoglobin 37.2 pg (27.0-31.0); Mean Platelet Volume 8.2 fL (7.4-10.4); PLT Morphology Comment Appears Decreased; Platelet Count 114 thou/uL (130-400); Red Blood Cell (RBC) Count 2.52 mill/uL (4.70-6.10); White Blood Cell (WBC) Count 5.9 thou/uL (4.8-10.8)
[2017-12-11 06:12] VITALS: TEMP 98.2
[2017-12-11] MEDS: Amlodipine 5 MG TAB PO SCH (09:13)
[2017-12-11] MEDS: Multivitamin W/ Minerals 1 TAB PO SCH (09:13)
[2017-12-11] MEDS: Diazepam 5 MG TAB PO SCH (09:13)
[2017-12-11] MEDS: Potassium Chloride 20 MEQ TAB PO SCH ×2 (09:13→14:56)
[2017-12-11] MEDS: Folic Acid 1 MG TAB PO SCH (09:13)
[2017-12-11] MEDS: Cyanocobalamin (Vitamin B-12) 1,000 MCG TAB PO SCH (09:13)
[2017-12-11] MEDS: Magnesium Oxide 400 MG TAB PO SCH (09:13)
[2017-12-11] MEDS: prednisoLONE 15 MG/5 ML UDCUP PO SCH (09:15)
--- NOTE | 2017-12-11 10:53 | PDOC.PN ---
- Subjective Encounter Start Date: 12/11/17 Encounter Start Time: 10:51 Mr. Silva was seen today in follow-up of alcoholic hepatitis, and alcohol withdrawal. He is feeling better. He still has some visual hallucinations, but they has improved. - Objective Resuscitation Status: Resuscitation Status FULL:Full Resuscitation MAR Reviewed: Yes Vital Signs & Weight: Vital Signs (12 hours) Temp Pulse Resp BP BP BP Pulse Ox 12/11/17 08:00 98.2 F 66 18 117/76 99 12/11/17 07:44 98.2 F 66 18 117/76 99 12/11/17 04:00 98.2 F 72 16 138/82 138/82 98 12/11/17 00:00 148/99 H 12/10/17 23:02 98 F 70 16 148/99 H 95 Weight Admit Weight 120 lb 12.8 oz Weight 120 lb 12.8 oz I&O: 12/10/17 12/11/17 12/12/17 06:59 06:59 06:59 Intake Total 1780 820 Balance 1780 820 Result Diagrams: 12/11/17 04:27 12/09/17 05:05 Phys Exam - Physical Examination HEENT: PERRLA Respiratory: no wheezing, no rales, no rhonchi, clear to auscultation bilateral Cardiovascular: RRR, no significant murmur, no rub Gastrointestinal: soft, non-tender, no distention, positive bowel sounds Musculoskeletal: no edema Dx/Plan (1) Alcohol withdrawal syndrome Code(s): F10.239 - ALCOHOL DEPENDENCE WITH WITHDRAWAL, UNSPECIFIED Status: Acute (2) Alcoholic hepatitis without ascites Code(s): K70.10 - ALCOHOLIC HEPATITIS WITHOUT ASCITES Status: Acute (3) Coagulopathy Status: Acute (4) Hypokalemia Code(s): E87.6 - HYPOKALEMIA Status: Acute (5) Alcoholism /alcohol abuse Code(s): F10.20 - ALCOHOL DEPENDENCE, UNCOMPLICATED Status: Chronic - Plan * Alcoholic hepatits- improved. Bilirubin, as well as transaminase are much improved * Alcohol withdrawal symptoms are also much better * Will re-check the serum potassium, and replace if needed * Alcoholism- discussed the need for a structured program upon discharge from the hospital * Stable for discharge home.
[2017-12-11 11:09] LABS: Prothrombin Time 13.8 SEC (12.0-14.7)
[2017-12-11 11:18] LABS: Potassium 4.8 mmol/L (3.5-5.1)
[2017-12-11] MEDS: Nicotine 14 MG PATCH TD SCH (14:33)
[2017-12-11 16:12] VITALS: BP 119/81
--- NOTE | 2017-12-11 23:02 | DIS ---
DATE OF ADMISSION: 12/06/2017 DATE OF DISCHARGE: 12/11/2017 PRIMARY CARE PROVIDER: None. DISCHARGE DIAGNOSES: 1. Alcoholic hepatitis. 2. Alcohol withdrawal syndrome. 3. Hypertension. 4. Depression. DISCHARGE MEDICATIONS: Include Ativan 1 mg q.8 hours as needed, prednisone 10 mg daily for 5 more da ys, Zoloft 50 mg daily, Dilantin 100 mg t.i.d., Protonix 40 mg daily, folic acid 1 mg daily, and Norv asc 5 mg daily. PROCEDURES DONE DURING ADMISSION: The patient had a CT scan of the brain which was negative for any acute intracranial abnormality. CODE STATUS: FULL CODE. ALLERGIES: No known drug allergies. HOSPITAL COURSE: Mr. Silva is a pleasant 42-year-old gentleman who presented to the emergency room with confusion and altered mental status. It is suspected that this was due to alcohol withdrawal a s the patient has a history of heavy drinking. He also had elevated liver function test at the time of admission which was AST was as high as 628, ALT 192 and bilirubin was 2.8. By the time he was dis charged, these had returned almost back to normal in which the bilirubin was 0.7, AST 62 and ALT was 110. INR had normalized to 1.0. The patient was instructed on the need to have a structured program to help him with abstaining from alcohol. It is concerning that he had not formulated a clear plan at the time of discharge. He says that he was just going to go live with other people who do not dri nk. He says these have but says he would only go back there unless it was a last resort. The patient was also instructed to try to establish a primary care physician. He says he is trying to ge t indigent care. Since he is clinically stable; however, vital signs are all stable. He is afebrile . Liver function tests were almost completely normalized. He will be discharged home and he is enco uraged to have close outpatient followup.
== END 2017-12-11 18:28 | disposition home or self-care (01) | DRG 432 ==
LOC: ERS 21:41 → OBSVTOIN 12-06 01:00 → 2SW 12-06 01:00 → T4-A 12-06 16:01
PROVIDERS: ADMIT Internal Medicine; ATTEND Internal Medicine
DX: K70.10 Alcoholic hepatitis without ascites (principal); G93.49 Other encephalopathy; F10.230 Alcohol dependence with withdrawal, uncomplicated; E44.0 Moderate protein-calorie malnutrition; D68.4 Acquired coagulation factor deficiency; K92.1 Melena; Z68.1 Body mass index [BMI] 19.9 or less, adult; R44.1 Visual hallucinations; E87.6 Hypokalemia; R94.5 Abnormal results of liver function studies; F10.220 Alcohol dependence with intoxication, uncomplicated; E83.42 Hypomagnesemia; D53.9 Nutritional anemia, unspecified; D69.6 Thrombocytopenia, unspecified; F17.210 Nicotine dependence, cigarettes, uncomplicated; F12.10 Cannabis abuse, uncomplicated; G40.909 Epilepsy, unspecified, not intractable, without status epilepticus; K70.30 Alcoholic cirrhosis of liver without ascites; F41.9 Anxiety disorder, unspecified; F32.9 Major depressive disorder, single episode, unspecified; D75.89 Other specified diseases of blood and blood-forming organs
CPT/HCPCS: 36415; 70450; 80053; 80074; 80076; 80185; 80306; 80307; 82140; 82248; 82550; 83605; 83690; 83735; 84100; 84132; 84146; 85025; 85610; 85730; 96360; 99406; A4216; J1953; J2060; J3411; J3475; J7042; J7050

== ENCOUNTER 2019-01-01 15:10 | Emergency (ER) | payer SELFPAY ==
[2019-01-01 15:36] LABS: Hemoglobin 17.5 g/dL (14.0-18.0); Mean Corpuscular HGB CONC 34.5 g/dL (32.0-36.0); Mean Corpuscular Hemoglobin 34.4 pg (27.0-31.0); Mean Corpuscular Volume 99.8 fL (78.0-98.0); Platelet Count 249 thou/uL (130-400); Red Blood Cell (RBC) Count 5.09 mill/uL (4.70-6.10); White Blood Cell (WBC) Count 9.1 thou/uL (4.8-10.8)
[2019-01-01 15:48] LABS: ALT (SGPT) 29 U/L (8-55); AST (SGOT) 30 U/L (5-34); Albumin 4.4 g/dL (3.5-5.0); Alkaline Phosphatase 23 U/L (40-150); Anion Gap 17 mmol/L (10-20); BUN (Urea Nitrogen) Less than 4 mg/dL (8.9-20.6); Bilirubin, Total 0.7 mg/dL (0.2-1.2); Calc. Creatinine Clearance 0 mL/min (70-130); Calcium 9.7 mg/dL (7.8-10.44); Carbon Dioxide 22 mmol/L (22-29); Chloride 105 mmol/L (98-107); Estimated GFR-MDRD Greater than 90; Globulin 3.8 g/dL (2.4-3.5); Glucose 111 mg/dL (70-105); Potassium 3.9 mmol/L (3.5-5.1); Protein, Total 8.2 g/dL (6.0-8.3); Sodium 140 mmol/L (136-145)
[2019-01-01 15:53] LABS: Acetaminophen Less than 6.0 mcg/mL (10.0-30.0); Alcohol 381 mg/dL (Less than 10); Salicylate Less than 8.0 mg/dL (15.0-30.0)
[2019-01-01 15:57] LABS: Band 1 % (5-11); Eosinophils 1 % (0-10); Lymphocytes 66 % (21-51); MDiff Complete? YES; Monocytes 5 % (0-10); Neutrophil 27 % (42-75); Platelet Morphology Comment Appears Adequate
[2019-01-01] MEDS ORDERED: levETIRAcetam In NaCl (Iso-Os) 1,000 MG in Premix Bag 1 BAG IVPB SCH (16:15)
[2019-01-01] MEDS ORDERED: Lorazepam 2 MG/ML VIAL ONE ×2 (16:19→18:29)
[2019-01-01 16:23] LABS: Bilirubin Negative (Negative); Blood, Urine Negative (Negative); Clarity CLEAR (Clear); Glucose, Urine (Dipstick) Negative (Negative); Leukocyte Negative (Negative); Nitrite Negative (Negative); Protein, Urine (Dipstick) Negative (Neg-Trace); Specific Gravity, Urine 1.006 (1.002-1.036); pH, Urine 6.5 (5.0-9.0)
[2019-01-01 16:36] LABS: Amphetamine Not Detected (NotDetected); Barbiturates Screen Not Detected (NotDetected); Benzodiazepine Screen Not Detected (NotDetected); Cocaine Metabolite Screen Not Detected (NotDetected); Medtox Control Line Valid? VALID (VALID); Medtox Reader # READER 4; Methadone Not Detected (NotDetected); Methamphetamine Not Detected (NotDetected); Opiate Screen Not Detected (NotDetected); Oxycodone Screen Not Detected (NotDetected); Phencyclidine (PCP) Not Detected (NotDetected); THC/Cannabinoid Screen Detected (NotDetected); Tricyclic Screen Not Detected (NotDetected)
[2019-01-01] MEDS ORDERED: Nicotine 21 MG PATCH TOP SCH (20:15)
[2019-01-02] MEDS ORDERED: Lorazepam 1 MG TAB ONE ×2 (06:41→17:50)
[2019-01-03] MEDS ORDERED: Nicotine 21 MG PATCH TOP SCH (08:00)
[2019-01-03] MEDS ORDERED: traZODone HCl 50 MG TAB PO SCH (13:45)
[2019-01-03] MEDS ORDERED: Nicotine 14 MG PATCH TOP SCH (13:45)
== END 2019-01-03 18:46 ==
LOC: ERS 15:10
DX: R45.851 Suicidal ideations (principal); G40.909 Epilepsy, unspecified, not intractable, without status epilepticus; K21.9 Gastro-esophageal reflux disease without esophagitis; F32.9 Major depressive disorder, single episode, unspecified; F17.210 Nicotine dependence, cigarettes, uncomplicated; Z79.899 Other long term (current) drug therapy
CPT/HCPCS: 36415; 80053; 80306; 80307; 81003; 84443; 85025; 93005; 96361; 96365; 96375; 96376; J1953; J2060

== ENCOUNTER 2019-01-03 22:13 | Emergency (ER) | payer SELFPAY ==
[~2019-01-03 22:13] MED LIST: Acetaminophen 325 MG TAB ONE; Amlodipine 5 MG TAB ONE; risperiDONE 1 MG TAB ONE
== END 2019-01-04 02:15 ==
LOC: ERS 22:13
DX: R45.851 Suicidal ideations (principal); I10 Essential (primary) hypertension; F32.9 Major depressive disorder, single episode, unspecified; F17.210 Nicotine dependence, cigarettes, uncomplicated; K21.9 Gastro-esophageal reflux disease without esophagitis; Z71.6 Tobacco abuse counseling; Z79.899 Other long term (current) drug therapy
CPT/HCPCS: 99406